=== PATIENT | female | born 1970 | race Caucasian/White ===

== ENCOUNTER 2020-06-14 15:45 | Emergency (ER) | payer MEDICAID ==
--- NOTE | 2020-06-14 17:14 | ER Document Report ---
HPI - HPI Patient complains to provider of: Warm feeling all over after she used 3 puffs of albuterol Time Seen by Provider: 06/14/20 16:51 Onset: Other Onset/Duration: Intermittent Quality of pain: No pain Severity: None Pain Level: Denies Context: 49-year-old female presented to ED for hot flushed feeling and increased pulse after she used albuterol 3 puffs last night again this morning at 1 PM. She states this is not her medications she took the medicine because she thought it was sleep or help her sleep apnea. She states when I saw her she was feeling back to her normal self. She does have a history of sleep apnea takes Lasix for swelling to her legs chronic anxiety chronic joint pain. She is morbidly obese at 202.6 kg and 5 foot 2 inches tall Associated Symptoms: None, Other - Hot flushed feeling after using albuterol that is not prescribed to her Exacerbated by: Other - Use of albuterol Relieved by: Other - Release itself Similar symptoms previously: Yes - For the last 3 uses Recently seen / treated by doctor: Yes - ROS ROS below otherwise negative: Yes - CONSTITUTIONAL Constitutional: DENIES: Fever, Chills - EENT EENT: DENIES: Sore Throat, Ear Pain, Nasal Drainage-Clear, Nasal Drainage- Purulent, Congestion, Eye problems - NEURO Neurology: DENIES: Headache, Weakness, Vision blurred, Dizzinesss / Vertigo - CARDIOVASCULAR Cardiovascular: DENIES: Chest pain - RESPIRATORY Respiratory: DENIES: Trouble Breathing, Coughing - GASTROINTESTINAL Gastrointestinal: DENIES: Abdominal Pain, Nausea, Patient vomiting, Diarrhea, Constipation, Black / Bloody Stools - URINARY Urinary: DENIES: Dysuria, Urgency, Frequency - REPRODUCTIVE Reproductive: DENIES: :, Postmenopausal, Abnormal bleeding / discharge - MUSCULOSKELETAL Musculoskeletal: DENIES: Extremity pain, Back Pain, Neck Pain, Swelling - DERM Skin Color: Normal Skin Problems: None Past Medical History - General Information source: Patient - Social History Smoking Status: Never Smoker Frequency of alcohol use: None Drug Abuse: None Lives with: Family Family History: Arthritis, CAD, CVA, DM, Hyperlipidemia, Hypertension, Malignancy, Thyroid Disfunction Patient has suicidal ideation: No Patient has homicidal ideation: No - Medical History Medical History: Other - Severe morbid obesity - Past Medical History Cardiac Medical History: Reports: None Pulmonary Medical History: Reports: Hx Bronchitis, Hx Sleep Apnea EENT Medical History: Reports: None Neurological Medical History: Reports: None Endocrine Medical History: Reports: None Renal/ Medical History: Reports: None Malignancy Medical History: Reports: None GI Medical History: Reports: None Musculoskeletal Medical History: Reports Hx Musculoskeletal Deformity, Reports Hx Musculoskeletal Trauma Skin Medical History: Reports None Psychiatric Medical History: Reports: Hx Anxiety, Hx Depression Traumatic Medical History: Reports: None Infectious Medical History: Reports: None Past Surgical History: Reports: Hx Cholecystectomy - Immunizations Hx Diphtheria, Pertussis, Tetanus Vaccination: Yes Vertical Provider Document - CONSTITUTIONAL Agree With Documented VS: Yes Exam Limitations: Other - Severe morbid obesity General Appearance: No Apparent Distress, Obese - INFECTION CONTROL TRAVEL OUTSIDE OF THE [place] IN LAST 30 DAYS: No - HEENT HEENT: Atraumatic, Normal ENT Exam, Normocephalic, PERRLA - NECK Neck: Normal Inspection - RESPIRATORY Respiratory: Breath Sounds Normal, No Respiratory Distress - CARDIOVASCULAR Cardiovascular: Regular Rate, Regular Rhythm - GI/ABDOMEN Notes: Severe morbid obesity - MUSCULOSKELETAL/EXTREMETIES Musculoskeletal/Extremeties: MAEW, FROM, Non-Tender, Edema - NEURO Level of Consciousness: Awake, Alert, Appropriate - DERM Integumentary: Warm, Dry, No Rash Course - Vital Signs Vital signs: Temp Pulse Resp BP Pulse Ox 98.7 F 104 H 18 146/89 H 96 06/14/20 16:20 06/14/20 16:20 06/14/20 16:20 06/14/20 16:20 06/14/20 16:20 Discharge - Discharge Clinical Impression: Side effects improperly taking medicatio Condition: Good Disposition: HOME, SELF-CARE Additional Instructions: You were seen today for side effects to albuterol inhaler which you are not prescribed. You do not have asthma COPD or any need for the albuterol inhaler. Albuterol inhalers will make your heart go faster and make you feel flushed. It will not help sleep apnea. Please do not use the albuterol inhaler again unless prescribed by a primary care doctor. Please call your primary care doctor tomorrow and schedule a follow-up visit as well as your sleep apnea doctor. You stated you are having no chest pain no shortness of breath no cough no fever and you have been back to feeling your normal self. You will be discharged home please return immediately if you have any shortness of breath chest pain or flushed feeling without using the albuterol inhaler. FOLLOW-UP CARE: If you have been referred to a physician for follow-up care, call the physicians office for an appointment as you were instructed or within the next two days. If you experience worsening or a significant change in your symptoms, notify the physician immediately or return to the Emergency Department at any time for re-evaluation. Forms: Elevated Blood Pressure Referrals: FILEMON MAY MD [NO LOCAL MD] - Follow up tomorrow
[2020-06-14 17:19] VITALS: BP 148/78
== END 2020-06-14 17:12 | disposition home or self-care (01) ==
LOC: ER 15:45
DX: T48.6X1A Poisoning by antiasthmatics, accidental (unintentional), initial encounter (principal); R68.89 Other general symptoms and signs; E66.01 Morbid (severe) obesity due to excess calories; R60.9 Edema, unspecified; M79.89 Other specified soft tissue disorders; Z79.899 Other long term (current) drug therapy
CPT/HCPCS: 99282